=== PATIENT | female | born 1945 | race Hispanic/Latino ===

== ENCOUNTER 2018-08-19 20:48 | Observation (INO) | payer OTHER ==
[2018-08-19 22:19] LABS: BASOPHILS % (AUTO) 1.2 % (0.0-5.0); EOSINOPHILS % (AUTO) 1.4 % (0.0-8.0); LYMPHOCYTES % (AUTO) 19.1 % (21.0-51.0); MEAN CORPUSCULAR HEMOGLOBIN 31.6 pg (27.0-33.0); MONOCYTES % (AUTO) 9.5 % (3.0-13.0); NEUTROPHILS % (AUTO) 68.8 % (40.0-77.0); PLATELET COUNT (AUTO) 297 K/uL (130-400); RED BLOOD CELL COUNT(AUTO) 4.73 MIL/uL (4.00-5.50); WHITE BLOOD COUNT (AUTO) 10.3 K/uL (4.8-10.8)
[2018-08-19] MEDS ORDERED: ASPIRIN 325 MG TABLET ONE (22:24)
[2018-08-19 22:31] LABS: CREATININE 0.7 mg/dL (0.5-1.5); INR 0.93 (0.85-1.15); PARTIAL THROMBOPLASTIN TIME 28.6 SEC (26.3-35.5); POTASSIUM 3.8 mmol/L (3.5-5.1); PROTHROMBIN TIME 9.8 SEC (9.6-11.6)
[2018-08-19 22:37] LABS: APPEARANCE,URINE Clear (CLEAR); BILIRUBIN,URINE Negative (NEGATIVE); COLOR,URINE Yellow (YELLOW); GLUCOSE, URINE (UA) Negative (NEGATIVE); KETONES,URINE Negative (NEGATIVE); LEUKOCYTE ESTERASE ,URINE Moderate (NEGATIVE); NITRATE,URINE Negative (NEGATIVE); OCCULT BLOOD,URINE Negative (NEGATIVE); PROTEIN,URINE Negative (NEGATIVE); UROBILINOGEN,URINE 0.2 mg/dL (0.2-1.0)
[2018-08-19 22:47] LABS: ALBUMIN 3.9 g/dL (3.5-5.0)
[2018-08-19 22:50] LABS: BACTERIA,URINE Few /HPF (None Seen); MUCUS,URINE Moderate LPF (None Seen); SQUAMOUS EPITHELIAL CELL,UR Moderate /HPF (0-2)
[2018-08-19 22:52] LABS: BILIRUBIN,TOTAL 0.3 mg/dL (0.2-1.0); TOTAL PROTEIN, SERUM 7.1 g/dL (6.0-8.3)
--- NOTE | 2018-08-20 12:22 | NUR ---
[facility] met with pt and daughter Mel Isaac [phone]. Daughter lives with pt who is independent of all ADLS, no DME or in home care services. Pt denies any needs at [place], and plan is home. Son is Willie Isaac [phone]. Cm to follow and assist as needed Addendum: 08/20/18 at 1226 by ALFONZO BISWAS Amended: Links added.
[2018-08-20] MEDS ORDERED: LISI-613 PO (14:25)
== END 2018-08-20 16:44 | disposition home or self-care (01) ==
LOC: EDH 20:48 → EDHIP 22:58
PROVIDERS: ADMIT Internal Medicine; ATTEND Internal Medicine
DX: R51 Headache (principal); I10 Essential (primary) hypertension; Z79.01 Long term (current) use of anticoagulants
CPT/HCPCS: 36415 ×2; 70450; 71045; 80053; 81001; 82550; 83690; 84484 ×3; 85025; 85610; 85730; 93005 ×2; 99284; G0378 ×18

== ENCOUNTER → 2018-09-04 | Outpatient (CLI) | payer OTHER ==
[~2018-09-04] MED LIST: LISI-613 PO
== END | disposition home or self-care (01) ==
LOC: SHCH 11:42
PROVIDERS: ATTEND Internal Medicine Cardiovascular Disease
DX: I35.8 Other nonrheumatic aortic valve disorders (principal); I25.119 Atherosclerotic heart disease of native coronary artery with unspecified angina pectoris
CPT/HCPCS: 93306

== ENCOUNTER 2018-12-15 19:55 | Emergency (ER) | payer OTHER ==
[2018-12-15 20:40] LABS: BASOPHILS % (AUTO) 0.4 % (0.0-5.0); EOSINOPHILS % (AUTO) 0.4 % (0.0-8.0); HEMATOCRIT 41.6 % (36-48); LYMPHOCYTES % (AUTO) 11.2 % (21.0-51.0); MEAN CORPUSCULAR HEMOGLOBIN 32.1 pg (27.0-33.0); MEAN CORPUSCULAR HGB CONC 34.7 g/dL (32.0-36.0); MEAN CORPUSCULAR VOLUME 92.4 fL (79-99); NUCLEATED RED BLOOD CELLS 0.1 % (0.0-0.19); PLATELET COUNT (AUTO) 239 K/uL (130-400); RED CELL DISTRIBUTION WIDTH 12.8 % (11.0-15.5); WHITE BLOOD COUNT (AUTO) 13.9 K/uL (4.8-10.8)
[2018-12-15] MEDS ORDERED: ONDANSETRON HCL 4 MG/2 ML VIAL ONE (20:40)
[2018-12-15] MEDS ORDERED: PANTOPRAZOLE 40 MG/VIAL IVP ONE (20:48)
[2018-12-15 20:49] LABS: CREATININE 0.8 mg/dL (0.5-1.5); POTASSIUM 3.5 mmol/L (3.5-5.1)
[2018-12-15 20:50] LABS: APPEARANCE,URINE Clear (CLEAR); BILIRUBIN,URINE Negative (NEGATIVE); COLOR,URINE Yellow (YELLOW); GLUCOSE, URINE (UA) Negative (NEGATIVE); KETONES,URINE Negative (NEGATIVE); LEUKOCYTE ESTERASE ,URINE Negative (NEGATIVE); NITRATE,URINE Negative (NEGATIVE); OCCULT BLOOD,URINE Negative (NEGATIVE); PH,URINE 7.5 (5.0-8.0); PROTEIN,URINE Negative (NEGATIVE); UROBILINOGEN,URINE 0.2 mg/dL (0.2-1.0)
[2018-12-15 20:56] LABS: ALBUMIN 3.6 g/dL (3.5-5.0); BILIRUBIN,DIRECT 0.1 mg/dL (0.0-0.3); BILIRUBIN,TOTAL 0.6 mg/dL (0.2-1.0)
[2018-12-15] MEDS ORDERED: SUCRALFATE 1 GM TABLET ONE (21:20)
[2018-12-15] MEDS ORDERED: FAMOTIDINE/PF 20 MG/2 ML VIAL IV ONE (21:20)
== END 2018-12-15 22:19 | disposition home or self-care (01) ==
LOC: EDH 19:55
DX: K29.70 Gastritis, unspecified, without bleeding (principal); I10 Essential (primary) hypertension; Z90.710 Acquired absence of both cervix and uterus
CPT/HCPCS: 36415; 80048; 80076; 81003; 82550; 83690; 84484; 85025; 93005; 96374; 96375; 99285; C9113; J2405; J3490

== ENCOUNTER 2021-01-05 14:33 | Emergency (ER) | payer OTHER ==
[~2021-01-05] VITALS: Ht 152.4 cm; Wt 3.3 kg
[~2021-01-05 14:33] MED LIST changes: -LISI-613 PO; +LISI20TA24 PO
[2021-01-05 14:40] VITALS: BP 179/94
[2021-01-05 15:47] LABS: BASOPHILS % (AUTO) 0.3 % (0.0-5.0); EOSINOPHILS % (AUTO) 0.6 % (0.0-8.0); HEMATOCRIT 42.8 % (36-48); LYMPHOCYTES % (AUTO) 28.7 % (21.0-51.0); MEAN CORPUSCULAR HEMOGLOBIN 31.4 pg (27.0-33.0); MEAN CORPUSCULAR HGB CONC 33.6 g/dL (32.0-36.0); MEAN CORPUSCULAR VOLUME 93.4 fL (79-99); MONOCYTES % (AUTO) 6.9 % (3.0-13.0); NEUTROPHILS % (AUTO) 63.2 % (40.0-77.0); PLATELET COUNT (AUTO) 230 K/uL (130-400); RED BLOOD CELL COUNT(AUTO) 4.58 MIL/uL (4.00-5.50); RED CELL DISTRIBUTION WIDTH 12.4 % (11.0-15.5); WHITE BLOOD COUNT (AUTO) 9.4 K/uL (4.8-10.8)
[2021-01-05 16:00] VITALS: BP 183/75
[2021-01-05 16:06] LABS: CREATININE 0.8 mg/dL (0.5-1.5); POTASSIUM 3.4 mmol/L (3.5-5.1)
[2021-01-05 16:12] LABS: INR 1.01 (0.85-1.15)
[2021-01-05 16:17] LABS: ALBUMIN 3.8 g/dL (3.5-5.0); BILIRUBIN,TOTAL 0.3 mg/dL (0.2-1.0); TOTAL PROTEIN, SERUM 7.1 g/dL (6.0-8.3)
[2021-01-05 17:36] LABS: APPEARANCE,URINE Clear (CLEAR); BILIRUBIN,URINE Negative (NEGATIVE); COLOR,URINE Yellow (YELLOW); GLUCOSE, URINE (UA) Negative (NEGATIVE); KETONES,URINE Trace mg/dL (NEGATIVE); LEUKOCYTE ESTERASE ,URINE Moderate (NEGATIVE); NITRATE,URINE Positive (NEGATIVE); OCCULT BLOOD,URINE Negative (NEGATIVE); PROTEIN,URINE Negative (NEGATIVE); UROBILINOGEN,URINE 0.2 mg/dL (0.2-1.0)
[2021-01-05] MEDS ORDERED: ASPI-1005 PO (17:45)
[2021-01-05 17:47] LABS: BACTERIA,URINE Many /HPF (None Seen); MUCUS,URINE Few LPF (None Seen); SQUAMOUS EPITHELIAL CELL,UR Few /HPF (0-2)
[2021-01-05] MEDS ORDERED: ASPIRIN 325MG TAB ONE (17:54)
[2021-01-05] MEDS ORDERED: ASPIRIN 325MG TAB PO ONE (18:00)
[2021-01-05 18:21] VITALS: BP 116/79
== END 2021-01-05 18:22 | disposition left against medical advice (07) ==
LOC: EDH 14:33
DX: R07.89 Other chest pain (principal); I10 Essential (primary) hypertension; I25.10 Atherosclerotic heart disease of native coronary artery without angina pectoris; Z79.899 Other long term (current) drug therapy
CPT/HCPCS: 36415; 71045; 80053; 81001; 82550; 84484; 85025; 85610; 87077; 87088; 87186; 93005

== ENCOUNTER 2022-02-22 10:16 | Emergency (ER) | payer OTHER ==
[~2022-02-22] VITALS: Ht 157.5 cm; Wt 59.0 kg
[~2022-02-22 10:16] MED LIST changes: +ASPI-1005 PO; +MELO7.5T12 PO; +ORPH-43 PO
[2022-02-22] MEDS ORDERED: MORPHINE 2 MG SYG ONE (12:16)
[2022-02-22] MEDS ORDERED: ONDANSETRON 4MG INJ ONE (12:16)
[2022-02-22] MEDS ORDERED: ONDANSETRON 4MG INJ IVP ONE (12:30)
[2022-02-22] MEDS ORDERED: MORPHINE 2 MG SYG IVP ONE (12:30)
[2022-02-22] MEDS ORDERED: NAPR-1180 PO (13:35)
[2022-02-22] MEDS ORDERED: TRAM1TAB2 PO (13:35)
[2022-02-22] MEDS ORDERED: CYCL10TA16 PO (13:35)
[2022-02-22 14:00] VITALS: BP 159/65
== END 2022-02-22 14:02 | disposition home or self-care (01) ==
LOC: EDH 10:16
DX: S16.1XXA Strain of muscle, fascia and tendon at neck level, initial encounter (principal); S20.212A Contusion of left front wall of thorax, initial encounter; S40.012A Contusion of left shoulder, initial encounter; M25.522 Pain in left elbow; I10 Essential (primary) hypertension; Z79.899 Other long term (current) drug therapy; Z98.890 Other specified postprocedural states; W11.XXXA Fall on and from ladder, initial encounter; Y93.89 Activity, other specified; Y92.89 Other specified places as the place of occurrence of the external cause; Y99.8 Other external cause status
CPT/HCPCS: 99284; 70450; 96374; 96375; 73080; 73060; 71100; 73030; 72125; 70486; J2405

== ENCOUNTER 2023-09-27 09:12 | Emergency (ER) | payer OTHER ==
[~2023-09-27] VITALS: Ht 154.9 cm; Wt 53.5 kg
[~2023-09-27 09:12] MED LIST changes: +CYCL10TA16 PO; +NAPR-1180 PO; -ORPH-43 PO; +ORPH100T4 PO; +TRAM1TAB2 PO
[2023-09-27] MEDS: LABETALOL 20MG SYG IV ONE (09:41)
[2023-09-27 09:42] LABS: BASOPHILS # (AUTO) 0.04 K/uL (0.00-0.20); BASOPHILS % (AUTO) 0.3 % (0.0-5.0); EOSINOPHILS # (AUTO) 0.01 K/uL (0.00-0.70); EOSINOPHILS % (AUTO) 0.1 % (0.0-8.0); HEMATOCRIT 42.9 % (36-48); IMMATURE GRANULOCYTE ABSOLUTE 0.06 K/uL (0-1); LYMPHOCYTES # (AUTO) 1.8 K/uL (1.0-4.8); LYMPHOCYTES % (AUTO) 13.1 % (21.0-51.0); MEAN CORPUSCULAR HEMOGLOBIN 31.8 pg (27.0-33.0); MEAN CORPUSCULAR VOLUME 90.9 fL (79-99); MONOCYTES # (AUTO) 0.4 K/uL (0.1-1.0); MONOCYTES % (AUTO) 2.8 % (3.0-13.0); NEUTROPHILS # (AUTO) 11.3 K/uL (1.8-7.7); NEUTROPHILS % (AUTO) 83.3 % (40.0-77.0); PLATELET COUNT (AUTO) 277 K/uL (130-400); RED BLOOD CELL COUNT(AUTO) 4.72 MIL/uL (4.00-5.50); WHITE BLOOD COUNT (AUTO) 13.6 K/uL (4.8-10.8)
[2023-09-27 10:36] LABS: BILIRUBIN,TOTAL 0.5 mg/dL (0.2-1.0); CREATININE 0.8 mg/dL (0.5-1.0); POTASSIUM 3.2 mmol/L (3.5-5.1); TOTAL PROTEIN, SERUM 7.6 g/dL (6.0-8.3)
[2023-09-27] MEDS: POTASSIUM BICARB/CIT AC 25 MEQ TABLET.EFF PO ONE (11:13)
[2023-09-27] MEDS: MECLIZINE HCL 25 MG TABLET PO ONE (12:20)
[2023-09-27] MEDS ORDERED: MECL-302 PO (16:36)
[2023-09-27 16:42] VITALS: BP 159/67; PULSE 68; RESP 18; O2SAT 100
== END 2023-09-27 16:53 | disposition home or self-care (01) ==
LOC: EDH 09:12
DX: R42 Dizziness and giddiness (principal); I16.0 Hypertensive urgency; E87.6 Hypokalemia; I10 Essential (primary) hypertension; Z79.1 Long term (current) use of non-steroidal anti-inflammatories (NSAID); Z79.82 Long term (current) use of aspirin; Z79.899 Other long term (current) drug therapy
CPT/HCPCS: 36415; 70450; 70544; 70547; 80053; 84484; 85025; 93005; 96374

== ENCOUNTER → 2023-12-31 | Outpatient (CLI) | payer OTHER ==
[~2023-12-31] MED LIST changes: +MECL-302 PO
== END | disposition home or self-care (01) ==
LOC: RAH 14:39
PROVIDERS: ATTEND Internal Medicine
DX: S46.912A Strain of unspecified muscle, fascia and tendon at shoulder and upper arm level, left arm, initial encounter (principal); M19.012 Primary osteoarthritis, left shoulder; X58.XXXA Exposure to other specified factors, initial encounter; Y93.89 Activity, other specified; Y92.89 Other specified places as the place of occurrence of the external cause; Y99.8 Other external cause status
CPT/HCPCS: 73030

== ENCOUNTER → 2024-12-21 | Outpatient (CLI) | payer OTHER ==
--- NOTE | 2024-12-22 06:49 | HMCIMG ---
EXAM: CR Lumbar Spine, 3 views. CLINICAL HISTORY: Lumbar back pain. COMPARISON: None provided. FINDINGS: Straightening of the expected lumbar lordosis with mild levocurvature reflects paraspinal muscle spasm. Mild osteopenia. Moderate spondylosis and degenerative disc space narrowing at multiple levels, most pronounced at L4-L5 and L5-S1 levels. Normal vertebral body heights. No acute fracture. A component of mild constipation is present in the included colon. IMPRESSION: No acute bony abnormality. Straightening of the expected lumbar lordosis with mild levocurvature reflects paraspinal muscle spasm. Mild osteopenia. Moderate spondylosis and degenerative disc space narrowing at multiple levels, most pronounced at L4-L5 and L5-S1 levels. /[place]
== END | disposition home or self-care (01) ==
LOC: RAH 10:06
PROVIDERS: ATTEND Internal Medicine
DX: M47.817 Spondylosis without myelopathy or radiculopathy, lumbosacral region (principal); M85.88 Other specified disorders of bone density and structure, other site; M40.56 Lordosis, unspecified, lumbar region; M43.8X6 Other specified deforming dorsopathies, lumbar region; M62.830 Muscle spasm of back; M48.07 Spinal stenosis, lumbosacral region; K59.00 Constipation, unspecified; M54.50 Low back pain, unspecified
CPT/HCPCS: 72100